=== PATIENT | female | born 1985 | race Caucasian/White ===

== ENCOUNTER 2017-04-09 16:16 | Emergency (ER) | payer OTHER ==
[~2017-04-09] VITALS: Ht 165.1 cm; Wt 49.0 kg
== END 2017-04-09 21:39 | disposition home or self-care (01) ==
LOC: ER 16:16
DX: R10.2 Pelvic and perineal pain (principal); F12.929 Cannabis use, unspecified with intoxication, unspecified

== ENCOUNTER 2017-05-15 12:54 | Emergency (ER) | payer OTHER ==
[~2017-05-15] VITALS: Ht 165.1 cm; Wt 49.0 kg
== END 2017-05-15 19:00 | disposition home or self-care (01) ==
LOC: ER 12:54
DX: Z34.01 Encounter for supervision of normal first pregnancy, first trimester (principal); O20.0 Threatened abortion

== ENCOUNTER 2017-08-14 12:57 | Emergency (ER) | payer OTHER ==
[~2017-08-14] VITALS: Ht 165.1 cm; Wt 51.7 kg
[2017-08-14] MEDS ORDERED: OBTREX DHA PRE1 EACH (13:11)
== END 2017-08-14 16:44 | disposition home or self-care (01) ==
LOC: ER 12:57
DX: O20.0 Threatened abortion (principal); O26.891 Other specified pregnancy related conditions, first trimester; N83.291 Other ovarian cyst, right side; Z34.01 Encounter for supervision of normal first pregnancy, first trimester

== ENCOUNTER 2018-01-20 09:47 | Outpatient (CLI) | payer OTHER ==
[~2018-01-20 09:47] MED LIST: OBTREX DHA PRE1 EACH
== END 2018-01-20 10:39 | disposition home or self-care (01) ==
LOC: NST 09:47
DX: Z34.83 Encounter for supervision of other normal pregnancy, third trimester (principal)

== ENCOUNTER 2018-03-03 14:45 | Inpatient (IN) | payer OTHER ==
[~2018-03-03] VITALS: Ht 165.1 cm; Wt 67.1 kg
== END 2018-03-10 14:47 | DRG 807 ==
LOC: OB/GYN 14:45 → LDR 03-08 00:51 → OB/GYN 03-08 14:24
PROVIDERS: ADMIT Obstetrics & Gynecology Maternal & Fetal Medicine
PROC: 10E0XZZ Delivery of Products of Conception, External Approach (ICD-10-PCS; principal; 2018-03-08)
PROC: 0KQM0ZZ Repair Perineum Muscle, Open Approach (ICD-10-PCS; 2018-03-08)
PROC: 3E033VJ Introduction of Other Hormone into Peripheral Vein, Percutaneous Approach (ICD-10-PCS; 2018-03-08)
PROC: 4A1HXCZ Monitoring of Products of Conception, Cardiac Rate, External Approach (ICD-10-PCS; 2018-03-08)
DX: O70.1 Second degree perineal laceration during delivery (principal); Z37.0 Single live birth; Z3A.38 38 weeks gestation of pregnancy

== ENCOUNTER → 2018-03-07 | Outpatient (CLI) | payer OTHER | END | disposition home or self-care (01) | LOC: NST 13:50 | DX: Z34.83 Encounter for supervision of other normal pregnancy, third trimester (principal) ==

== ENCOUNTER 2024-07-27 17:50 | Emergency (ER) | payer OTHER ==
[~2024-07-27] VITALS: Ht 165.1 cm; Wt 52.2 kg
[2024-07-27 23:13] LABS: BASO % 0.1 % (0.1-1.2); EOS # 0.01 (0.04-0.54); RED CELL DISTRIBUTION WIDTH 12.2 % (11.6-14.4)
[2024-07-27 23:29] LABS: HEMOGLOBIN 14.2 g/dL (11.2-15.7); LYMPH # 1.53 (1.18-3.74); LYMPH % 7.5 % (19.3-53.1); MEAN CORPUSCULAR HEMOGLOBIN 31.3 pg (25.6-32.2); MONO # 0.32 (0.24-0.82); MONO % 1.6 % (4.7-12.5); NEUT # 18.23 (1.56-6.13); NEUT % 89.6 % (34.0-71.1); PLATELET COUNT 186 K/uL (163-369); RED BLOOD COUNT 4.54 M/uL (3.93-5.22)
[2024-07-27 23:41] LABS: ALBUMIN 3.3 gm/dL (3.4-5.0); BILIRUBIN TOTAL 0.38 mg/dL (0.3-1.2); CALCIUM 8.4 mg/dL (8.5-10.1); CREATININE SERUM 0.54 mg/dL (0.55-1.02); GFR 126.35; GLOBULINA 3.5 G/DL (2.4-3.5); POTASSIUM 3.48 mEq/L (3.5-5.1); TOTAL PROTEIN 6.8 gm/dL (6.4-8.2)
[2024-07-28] MEDS ORDERED: CEFTRIAXONE SODIUM 2,000 MG VIAL IV STA (00:31)
[2024-07-28] MEDS ORDERED: CEFTRIAXONE SODIUM 2,000 MG VIAL ONE (00:43)
[2024-07-28] MEDS ORDERED: FAMOTIDINE/PF 20 MG/2 ML VIAL ONE (00:57)
[2024-07-28] MEDS ORDERED: FAMOTIDINE/PF 20 MG in 0.9 % SODIUM CHLORIDE 8 ML IV PUSH STA (01:04)
[2024-07-28 02:34] LABS: COVID-19 AG NEGATIVE (NEGATIVE)
[2024-07-28 02:35] LABS: INFLUENZA A AG NEGATIVE (NEGATIVE)
== END 2024-07-28 03:30 | disposition home or self-care (01) ==
LOC: ER 17:50
PROVIDERS: Preventive Medicine Public Health & General Preventive Medicine
DX: J06.9 Acute upper respiratory infection, unspecified (principal); J18.9 Pneumonia, unspecified organism; Z20.822 Contact with and (suspected) exposure to COVID-19; Z88.8 Allergy status to other drugs, medicaments and biological substances